=== PATIENT | female | born 1940 | race Caucasian/White ===

== ENCOUNTER → 2019-06-13 | Outpatient (CLI) | payer MEDICARE ==
[~2019-06-13] MED LIST: ANTI1CAP5 PO; LAN30PT PO
--- NOTE | 2019-06-14 11:42 | RADIOLOGY IMAGING REPORT ---
FACILITY: [facility] PATIENT NAME: VENUS BEGUM : [id number] MR: [id number] V: [id number] EXAM DATE: [id number] ORDERING PHYSICIAN: ARANZA FENTON TECHNOLOGIST: Mallika Blanton PROCEDURE: BILATERAL DIGITAL SCREENING MAMMOGRAM WITH CAD ASSISTED INTERPRETATION & 3D TOMOSYNTHESIS REASON FOR STUDY: Screening. FAMILY HISTORY OF BREAST CANCER: None. BREAST PROCEDURES/TREATMENTS: Benign lumpectomy Right breast. COMPARISON: 01/21/17, 01/25/15. VIEWS OBTAINED: Bilateral 2D & 3D full field CC & MLO projections. BREAST DENSITY: The breasts are heterogeneously dense which can obscure small masses. MAMMOGRAM FINDINGS: In the lateral portion of the Left breast in the middle depth there is a circumscribed density for which Spot compression view is recommended. In the upper portion of the Left breast in the Left MLO view there is an asymmetry in the middle depth for which Spot compression view is recommended. IMPRESSION: BIRADS 0: Incomplete. Additional views of the Left breast recommended as described. DIAGNOSTIC CATEGORY 0--INCOMPLETE: NEED ADDITIONAL IMAGING EVALUATION. RECOMMENDATIONS: ADDITIONAL MAMMOGRAPHIC VIEWS REQUIRED: LEFT BREAST. Dictated by: Connie Casillas M.D. on 06/13/2019 at 16:22 Transcribed by: CHRIS on 06/14/2019 at 10:23 Approved by: Connie Casillas M.D. on 06/14/2019 at 11:37 [facility]
== END ==
LOC: MAMO 01:14
PROVIDERS: ATTEND Family Medicine
DX: Z12.31 Encounter for screening mammogram for malignant neoplasm of breast (principal); R92.8 Other abnormal and inconclusive findings on diagnostic imaging of breast
CPT/HCPCS: 77063; 77067